=== PATIENT | female | born 1995 ===

== ENCOUNTER 2023-03-02 17:14 | Emergency (ER) | payer OTHER, BC ==
[2023-03-02 17:18] VITALS: BP 121/82; PULSE 80; RESP 18; TEMP 98; BMI 28.3
[2023-03-02] MEDS ORDERED: TETANUS AND DIPHTHERIA TOXOID 0.5 ML DISP.SYRIN IM ONE (17:22)
[2023-03-02 17:54] LABS: BASO % 0.4 % (0-2.0); EOS % 0.9 % (0-4.5); HEMATOCRIT 38.6 % (32.4-45.2); HEMOGLOBIN 12.9 GM/dL (10.7-15.3); LYMPH % 20.6 % (8-40); MCH 29.1 pg (25.7-33.7); MCHC 33.5 g/dl (32.0-36.0); MEAN CELL VOLUME 86.8 fl (80-96); MEAN PLT VOLUME 8.6 fl (7.5-11.1); MONO % 5.6 % (3.8-10.2); NEUT % 72.5 % (42.8-82.8); PLATELET COUNT 172 10^3/uL (134-434); RBC 4.45 M/mm3 (3.60-5.2); RDW 15.4 % (11.6-15.6); WHITE BLOOD COUNT 8.1 K/mm3 (4.0-10.0)
[2023-03-02 18:13] LABS: POTASSIUM 3.6 mmol/L (3.5-5.1)
[2023-03-02 18:16] LABS: CALCIUM 8.9 mg/dL (8.5-10.1)
[2023-03-02 18:17] LABS: ALBUMIN 2.9 g/dl (3.4-5.0)
[2023-03-02 18:18] LABS: URIC ACID 2.8 mg/dL (2.6-7.2)
[2023-03-02 18:19] LABS: CREATININE 0.3 mg/dL (0.55-1.3)
[2023-03-02 18:20] LABS: PHOSPHOROUS 2.8 mg/dL (2.5-4.9); TOT PROT 6.5 g/dl (6.4-8.2)
[2023-03-02 18:22] LABS: BILIRUBIN,TOTAL 0.1 mg/dL (0.2-1)
[2023-03-02 19:13] LABS: HIV INTERPRETATION NEGATIVE (NEGATIVE)
== END 2023-03-02 17:43 | disposition home or self-care (01) ==
LOC: JER 17:14
DX: O9A.212 Injury, poisoning and certain other consequences of external causes complicating pregnancy, second trimester (principal); S61.243A Puncture wound with foreign body of left middle finger without damage to nail, initial encounter; Z3A.00 Weeks of gestation of pregnancy not specified; W46.1XXA Contact with contaminated hypodermic needle, initial encounter
CPT/HCPCS: 36415; 80053; 82465; 82977; 83615; 84100; 84478; 84550; 85025; 86704; 86803; 87340; 87389; 87517; 99283-25